=== PATIENT | female | born 1965 | race Two or more races ===

== ENCOUNTER 2024-06-10 08:43 | Day surgery (SDC) | payer MEDICAID ==
[2024-06-06 10:25] LABS: Basophils # (auto) 0.1 10 ^3/uL (0-0.2); Basophils % (auto) 0.7 % (0.0-2.0); Eosinophils # (auto) 0.2 10 ^3/uL (0-0.8); Eosinophils % (auto) 2.2 % (0.0-7.0); Hematocrit 41.2 % (36.0-46.0); Hemoglobin 13.9 g/dL (12.2-16.2); Lymphocytes # (auto) 3.3 10 ^3/uL (0.4-5.4); Lymphocytes % (auto) 38.8 % (10.0-50.0); Mean Corpuscular Hemoglobin 30.3 pg (28.0-32.0); Mean Corpuscular Hgb Conc. 33.7 g/dL (32.0-36.0); Monocytes # (auto) 0.6 10 ^3/uL (0-1.3); Monocytes % (auto) 7.2 % (0.0-12.0); Neutrophils # (auto) 4.3 10 ^3/uL (1.6-8.6); Neutrophils % (auto) 51.1 % (37.0-80.0); Nucleated Red Blood Cells % 0.1 %; Platelet Count (auto) 250 10^3/uL (140-450); Red Blood Cells 4.58 10^6/uL (4.0-5.20); Red Cell Distribution Width 13.2 % (11.8-14.3); White Blood Cell 8.4 10^3/uL (4.4-10.8)
[2024-06-06 10:50] LABS: INR 0.98 (0.9-1.15); Partial Thromboplastin Time 26.4 SEC (24.5-34.5); Prothrombin Time 10.4 sec (9.3-11.8)
[2024-06-06 11:10] LABS: Alanine Aminotransferase 31 U/L (7-40); Alkaline Phosphatase 79 U/L (46-116); Anion Gap 11 (5-15); Aspartate Aminotransferase 24 U/L (13-40); BUN/Creatinine Ratio 22.5 (10.0-20.0); Blood Urea Nitrogen 16 mg/dL (9-23); Carbon Dioxide 25 mmol/L (20-31); Chloride 105 mmol/L (98-107); Glucose 85 mg/dL (74-106); Sodium 141 mmol/L (136-145); Total Protein 7.6 g/dL (5.7-8.2)
[2024-06-06 11:11] LABS: Albumin 4.8 g/dL (3.2-4.8)
[2024-06-06 11:12] LABS: Bilirubin, Total 0.4 mg/dL (0.2-1.0)
[2024-06-06 11:18] LABS: Calcium 10.5 mg/dL (8.7-10.4)
[~2024-06-10] VITALS: Ht 152.4 cm; Wt 64.4 kg
[~2024-06-10 08:43] MED LIST: GLIP10TA9 PO; INSU100S6 SC; METF-372 PO; SITA100T7 PO
[2024-06-10] MEDS ORDERED: SODIUM CHLORIDE LOCK 10 ML ONE (12:17)
[2024-06-10] MEDS ORDERED: diphenhdrAMINE HCL 50 MG/1 ML VL ONE (12:17)
[2024-06-10] MEDS: fentaNYL CITRATE 100 MCG/2 ML VL ONE (12:30)
[2024-06-10] MEDS: MIDAZOLAM HCL 5 MG/ML-1ML VIAL ONE (12:30)
[2024-06-10 12:51] VITALS: TEMP 98.5
--- NOTE | 2024-06-10 13:00 | DVHNC2 ---
Procedure - DATE OF PROCEDURE: June 10, 2024 SURGEON: UMA GRACE MD REFERRING PROVIDER: No primary care physician given PROCEDURE PERFORMED: 1. Colonoscopy with moderate sedation 2. Colonoscopy with cold snare polypectomy 3. Colonoscopy with polypectomy with cold biopsy PRE-PROCEDURE DIAGNOSIS: 1. Colon cancer screening POSTPROCEDURE DIAGNOSIS: 1. Two small colon polyps in the descending colon 2. Small internal hemorrhoids INDICATIONS FOR PROCEDURE: The patient is a 59-year-old female presents for average risk outpatient colonoscopy for screening. MEDICATIONS USED: 6mg of Versed IV and 75 mcg IV given in incremental doses DETAILS OF THE PROCEDURE: Informed consent was obtained after risks, benefits, and alternatives, were discussed at length with the patient. The patient gave consent to the procedure as well as the medication used for sedation. The patient was placed in the left lateral decubitus position. Digital rectal exam showed internal hemorrhoids. An Olympus variable torsion adult colonoscope was inserted into the rectum and advanced to the cecum. The cecum was identified by the ileocecal valve and the appendiceal orifice. The scope was then withdrawn. The prep was good with little amounts of liquid stool. There were no large polyps, masses, strictures, or arteriovenous malformation seen. The patient had two small polyps in the descending colon one removed completely with cold snare and one completely removed with cold biopsy forceps. More than six minutes withdrawal time was noted. Retroflexion showed 1 + internal hemorrhoids. The patient tolerated the procedure well [place] BOWEL PREP SCORE: 9 COLONOSCOPY START TIME: 1232 CECUM TIME: 1237 COLONOSCOPY END TIME: 1244 IMPRESSION: 1. Small Internal hemorrhoids 2. Two small colon polyps RECOMMENDATIONS: 1. For primary care physician 2. High-fiber diet 3. Repeat colonoscopy in five years unless otherwise indicated by symptoms or family history 4. Follow up in GI clinic for procedure and pathology results UMA GRACE MD Jun 10, 2024 13:00
[2024-06-10 13:40] VITALS: BP 118/72; PULSE 64; RESP 14; O2SAT 98
== END 2024-06-10 12:51 | disposition home or self-care (01) ==
LOC: GI 08:43
PROVIDERS: ATTEND Specialist
DX: Z12.11 Encounter for screening for malignant neoplasm of colon (principal); D12.4 Benign neoplasm of descending colon; K63.5 Polyp of colon; K64.8 Other hemorrhoids; E11.9 Type 2 diabetes mellitus without complications; Z79.84 Long term (current) use of oral hypoglycemic drugs; Z79.899 Other long term (current) drug therapy; Z98.51 Tubal ligation status; Z90.710 Acquired absence of both cervix and uterus; Z98.890 Other specified postprocedural states
CPT/HCPCS: 36415; 45380; 45385; 80053; 82962; 85025; 85610; 85730; 88305; J2250; J3010; 99152